=== PATIENT | male | born 1960 | race Caucasian/White ===

== ENCOUNTER 2022-05-13 15:44 | Inpatient (IN) | payer MEDICAID ==
[~2022-05-13] VITALS: Ht 162.6 cm; Wt 81.2 kg
--- NOTE | 2022-05-13 16:08 | NUR ---
perez at bedside for x-ray.
[2022-05-13 16:15] LABS: BASOPHILS # (AUTO) 0.1 K/uL (0.0-0.2); BASOPHILS % (AUTO) 0.7 % (0.0-2.0); EOSINOPHILS % (AUTO) 1.6 % (0.0-6.0); HEMATOCRIT 42 % (39-51); HEMOGLOBIN 14.2 g/dL (13.5-17.5); LYMPHOCYTES # (AUTO) 2.4 K/uL (0.8-4.8); LYMPHOCYTES % (AUTO) 26.9 % (20.0-44.0); MEAN CORPUSCULAR HGB CONC 34 g/dl (31.0-36.0); MEAN CORPUSCULAR VOLUME 96 fL (80-96); MONOCYTES # (AUTO) 0.8 K/uL (0.1-1.30); NEUTROPHILS # (AUTO) 5.5 K/uL (1.8-8.9); NEUTROPHILS % (AUTO) 61.8 % (43.0-81.0); PLATELET COUNT (AUTO) 157 K/uL (150-450); RED BLOOD CELL COUNT(AUTO) 4.39 MIL/uL (4.5-6.0); WHITE BLOOD COUNT (AUTO) 8.9 K/uL (4.3-11.0)
[2022-05-13 16:26] LABS: CALCIUM, SERUM 7.9 mg/dL (8.5-10.1); CARBON DIOXIDE 26 mmol/L (21-32); CHLORIDE 107 mmol/L (98-107); CREATININE 1.1 mg/dL (0.6-1.3); GLUCOSE 129 mg/dL (74-106); POTASSIUM 3.8 mmol/L (3.5-5.1); SODIUM SERUM 136 mmol/L (136-145); UREA NITROGEN, BLOOD 18 mg/dL (7-18)
[2022-05-13 16:39] LABS: ALANINE AMINOTRANSFERASE 32 U/L (12-78); ALKALINE PHOSPHATASE 54 U/L (46-116); ASPARTATE AMINOTRANSFERASE 19 U/L (15-37); BILIRUBIN,DIRECT 0.1 mg/dL (0.0-0.2); BILIRUBIN,TOTAL 0.4 mg/dL (0.2-1.0); TOTAL PROTEIN, SERUM 6.2 g/dL (6.4-8.2)
--- NOTE | 2022-05-13 17:19 | NUR ---
COVID SWAB COLLECTED AND SENT TO LAB
[2022-05-13] MEDS ORDERED: ASPIRIN 81 MG TAB.CHEW PO ONE (17:30)
[2022-05-13] MEDS ORDERED: ASPIRIN 81 MG TAB.CHEW ONE (17:44)
[2022-05-13] MEDS ORDERED: MORPHINE SULFATE INJ 2 MG/ML DISP.SYRIN IV PRN (19:00)
[2022-05-13] MEDS ORDERED: MAG HYDROX/AL HYDROX/SIMETH 30 ML UDC PO PRN (19:00)
[2022-05-13] MEDS ORDERED: ONDANSETRON HCL/PF 4 MG/2 ML VIAL IVP PRN (19:00)
[2022-05-13] MEDS ORDERED: MAGNESIUM HYDROXIDE 30 ML UDC PO PRN (19:00)
[2022-05-13] MEDS ORDERED: ACETAMINOPHEN 325 MG TABLET PO PRN (19:00)
[2022-05-13] MEDS ORDERED: LORAZEPAM 1 MG TABLET PO PRN (19:00)
[2022-05-13] MEDS ORDERED: Z GUARD REMEDY 4 OZ OINT TP PRN (19:00)
--- NOTE | 2022-05-13 20:00 | NUR ---
ASSUMED CARE. PT BIBRA C/O CP AT URGENT CARE. ASA AND NITRO GIVEN. EMS GAVE ADENOSISN 6MG/12MG. PT PAIN FREE ELECTRICAL MAINTENANCE WORKER. PT AAOX4 BREATHING EVENLY AND UNLABORED. SKIN WARM AND DRY. PT ATTACHED TO MONITOR AND POX. WILL CONTINUE TO MONITOR.
--- NOTE | 2022-05-14 00:33 | NUR ---
REPORT GIVEN TO SHAYLA RN FOR HAY
[2022-05-14 01:40] VITALS: BP 151/103
--- NOTE | 2022-05-14 01:45 | NUR ---
TRANSFERRED TO ROOM VIA ACLS
[2022-05-14] MEDS: IV NS 0.9% 1,000 ML IV PRN (01:47)
--- NOTE | 2022-05-14 03:19 | NUR ---
rRECEIVED REPORT FROM ER NURSE MAHI RN AT 2225, PATIENT TRANSPORTED VIA GURNEY AND WAS ABLE TO AMBULATE FROM GURNEY TO ROOM. DENIES PAIN, COMPLETE ASSESSMENT COMPLETED.
[2022-05-14 04:00] VITALS: BP 121/80
--- NOTE | 2022-05-14 07:09 | NUR ---
REPORT GIVEN TO JOSEFINA MCCARTY.
[2022-05-14 07:13] LABS: BASOPHILS # (AUTO) 0.1 K/uL (0.0-0.2); BASOPHILS % (AUTO) 0.7 % (0.0-2.0); EOSINOPHILS % (AUTO) 2.7 % (0.0-6.0); HEMATOCRIT 42 % (39-51); HEMOGLOBIN 13.9 g/dL (13.5-17.5); LYMPHOCYTES # (AUTO) 2.8 K/uL (0.8-4.8); LYMPHOCYTES % (AUTO) 32.5 % (20.0-44.0); MEAN CORPUSCULAR HGB CONC 33 g/dl (31.0-36.0); MEAN CORPUSCULAR VOLUME 96 fL (80-96); MONOCYTES # (AUTO) 0.8 K/uL (0.1-1.30); MONOCYTES % (AUTO) 8.9 % (2.0-12.0); NEUTROPHILS # (AUTO) 4.8 K/uL (1.8-8.9); NEUTROPHILS % (AUTO) 55.2 % (43.0-81.0); PLATELET COUNT (AUTO) 149 K/uL (150-450); RED BLOOD CELL COUNT(AUTO) 4.37 MIL/uL (4.5-6.0); WHITE BLOOD COUNT (AUTO) 8.7 K/uL (4.3-11.0)
--- NOTE | 2022-05-14 07:30 | NUR ---
INDUSTRIAL SPRAYPAINTER AM NOTES RECIEVED PT IN BED, AAOX 4, [place] CITIZ[place] SPEAKING ON ROOM AIR, NO SOB, RESPIRATION UNLABORED. O2 SAT >95%. SINUS RHYTHM HR 69 ON MONITOR. DENIES CHEST PAIN/DISCOMFORT. AMB AD RYAN. WITH RIGHT AC G 18, WITH NS AT 75 ML/HR, LEAKING. WILL RE START ON ANOTHER SITE. SKIN INTACT. CARDIAC DIET. POC DISCUSSED. VERBALIZED UNDERSTANDING. SAFETY MEASURES IN PLACE. BED LOW LOCKED. CALL LIGHT WITHIN REACH, WILL CONT TO MONITOR
[2022-05-14 07:40] LABS: CALCIUM, SERUM 8.2 mg/dL (8.5-10.1); CREATININE 0.9 mg/dL (0.6-1.3); MAGNESIUM 2.2 mg/dL (1.8-2.4); PHOSPHORUS 3.4 mg/dL (2.5-4.9); POTASSIUM 3.9 mmol/L (3.5-5.1)
[2022-05-14 08:00] VITALS: BP 127/89
--- NOTE | 2022-05-14 08:05 | NUR ---
RN NOTES CIGARETTE AND 2 LIGHTERS TO CONTRABAND SAFE.
[2022-05-14 08:55] LABS: THYROID STIMULATING HORMONE 44.291 uIU/mL (0.358-3.74)
[2022-05-14] MEDS: ATORVASTATIN 10 MG TABLET PO SCH (09:28)
[2022-05-14] MEDS: ASPIRIN 81 MG TAB.CHEW PO SCH (09:28)
[2022-05-14] MEDS: ENOXAPARIN SODIUM 80 MG/0.8 ML DISP.SYRIN SQ SCH ×2 (09:29→22:15)
--- NOTE | 2022-05-14 09:30 | NUR ---
RN NOTES DUE MEDS GIVEN
[2022-05-14 12:00] VITALS: BP 126/74
[2022-05-14 16:00] VITALS: BP 123/72
--- NOTE | 2022-05-14 18:34 | NUR ---
PEOPLE GREETER CLOSING NOTES PATIENT RESTING COMFORTABLY. ALL NEEDS MET AT THIS TIME. WAS SEEN BY DR. SABILLON EARLIER. VITAL SIGNS WNL. SAFETY MEASURES IN PLACE. CALL LIGHT WITHIN REACH. WILL ENDORSE TO NEXT SHIFT FOR HAY.
[2022-05-14 20:00] VITALS: BP 122/75
--- NOTE | 2022-05-14 20:00 | NUR ---
RN NOTES RECEIVED REPORT FROM REGISTRY. PATIENT IN BED A/O X4 CITIZEN OF [place] SPEAKING ABLE TO MAKE NEEDS KNOWN FAMILY AT BEDSIDE. ON ROOM AIR SATING 99% NO SOB NO DISTRESS NOTED AT THIS TIME. WITH IV ACCESS AT R HNAD #22 PATENT FLUSHES WELL WITH ONGOING IVF NS@ 75CC/HR. DENIES ANY CHEST PAIN AT THIS TIME. ALL SAFETY MEASURES IN PLACE AT ALL TIMES. HOB ELEVATED. CALL LIGHT WITHIN REACH. WILL CLOSELY MONITOR THE PATIENT
[2022-05-15] VITALS (7 sets, daily range): BP systolic 118–130; BP diastolic 76–85
[2022-05-15] MEDS: IV NS 0.9% 1,000 ML IV PRN (01:26)
--- NOTE | 2022-05-15 06:48 | NUR ---
RN NOTES PATIENT IN BED NO CHEST PAIN NO DISTRESS NOTED AT THIS TIME. IV ACCESS PATENT RUNNING NS @ 75ML/HR. ALL DUE MEDS GIVEN ORDERED. ALL SAFETY MEASURES IN PLACE AT ALL TIMES. PATIENT IS NPO SINCE LAST NIGHT FOR POSSIBLE CT ANGIO CONSENT @ CHART. ALL NEEDS ATTENDED. WILL ENDORSED TO MORNING SHIFT FOR HAY
--- NOTE | 2022-05-15 07:30 | NUR ---
MULTIMEDIA EDUCATIONAL SPECIALIST opening NOTES RECIEVED PT IN BED, AAOX 4, SPANISH/SPANISH SPEAKING ON ROOM AIR, O2 SAT >95%. SINUS RHYTHM/sinus tachycardia ON MONITOR.no complaints of chest pain or discomfort. pt has iv site on right wrist. iv patent,and flushing well. pt is ambulatory and independent.all safety measures in place. call light within reach. bed locked at lowest position. side rails up x2.bedside table next to patient
[2022-05-15] MEDS: ENOXAPARIN SODIUM 80 MG/0.8 ML DISP.SYRIN SQ SCH (08:30)
--- NOTE | 2022-05-15 08:30 | NUR ---
rn note hold lovenox due to pt going to [facility].spoke with radiology said to ok hold lovenox
[2022-05-15] MEDS: ATORVASTATIN 10 MG TABLET PO SCH (09:00)
[2022-05-15] MEDS: ASPIRIN 81 MG TAB.CHEW PO SCH (09:00)
[2022-05-15] MEDS ORDERED: ATORVASTATIN 10 MG TABLET PO SCH (09:00)
[2022-05-15 09:02] LABS: BASOPHILS # (AUTO) 0.1 K/uL (0.0-0.2); EOSINOPHILS % (AUTO) 2.6 % (0.0-6.0); HEMATOCRIT 43 % (39-51); HEMOGLOBIN 14.4 g/dL (13.5-17.5); LYMPHOCYTES # (AUTO) 2.5 K/uL (0.8-4.8); LYMPHOCYTES % (AUTO) 31.8 % (20.0-44.0); MEAN CORPUSCULAR HGB CONC 33 g/dl (31.0-36.0); MEAN CORPUSCULAR VOLUME 97 fL (80-96); MONOCYTES # (AUTO) 0.7 K/uL (0.1-1.30); MONOCYTES % (AUTO) 9.2 % (2.0-12.0); NEUTROPHILS # (AUTO) 4.3 K/uL (1.8-8.9); NEUTROPHILS % (AUTO) 55.4 % (43.0-81.0); PLATELET COUNT (AUTO) 139 K/uL (150-450); RED BLOOD CELL COUNT(AUTO) 4.48 MIL/uL (4.5-6.0); WHITE BLOOD COUNT (AUTO) 7.7 K/uL (4.3-11.0)
[2022-05-15 09:20] LABS: CALCIUM, SERUM 7.4 mg/dL (8.5-10.1); CREATININE 0.8 mg/dL (0.6-1.3); POTASSIUM 3.9 mmol/L (3.5-5.1)
[2022-05-15 09:26] LABS: ALBUMIN 2.7 g/dL (3.4-5.0); BILIRUBIN,TOTAL 0.4 mg/dL (0.2-1.0); MAGNESIUM 2.2 mg/dL (1.8-2.4); PHOSPHORUS 2.6 mg/dL (2.5-4.9); TOTAL PROTEIN, SERUM 6.3 g/dL (6.4-8.2)
[2022-05-15] MEDS ORDERED: NITROGLYCERIN 0.4 MG/TAB BOTTLE ONE (11:23)
[2022-05-15] MEDS ORDERED: IOHEXOL-350 100 ML VIAL IV ONE (11:23)
[2022-05-15] MEDS ORDERED: CT SWABBABLE VALVE TRANS SET 1 EA INFUS.SET MC ONE (11:23)
[2022-05-15] MEDS ORDERED: IV NS 0.9% 250 ML IV ONE (11:23)
[2022-05-15] MEDS ORDERED: METOPROLOL TARTRATE INJ 5 MG/5 ML AMPUL ONE (11:23)
[2022-05-15] MEDS: METOPROLOL TARTRATE INJ 5 MG/5 ML AMPUL IVP PRN ×4 (11:25→11:40)
[2022-05-15] MEDS ORDERED: NITROGLYCERIN 0.4 MG/TAB BOTTLE SL ONE (11:30)
[2022-05-15] MEDS: METOPROLOL TARTRATE 50 MG TABLET PO SCH ×2 (12:00→18:00)
--- NOTE | 2022-05-15 18:25 | NUR ---
filer metal patterns note pt stable, vital signs within normal limits. went over discharge instructions with patient and family member at bedside.verbalized understanding. removed iv and tele box. returned patient belongings. patient picked up by family,
== END 2022-05-15 18:30 | disposition home or self-care (01) | DRG 190 ==
LOC: ER 15:45 → TELE1 21:13
PROVIDERS: ADMIT Internal Medicine; ATTEND Nurse Practitioner Acute Care
DX: I25.10 Atherosclerotic heart disease of native coronary artery without angina pectoris (principal); I21.A1 Myocardial infarction type 2; E44.0 Moderate protein-calorie malnutrition; I49.9 Cardiac arrhythmia, unspecified; I10 Essential (primary) hypertension; E78.5 Hyperlipidemia, unspecified; E88.09 Other disorders of plasma-protein metabolism, not elsewhere classified; E66.9 Obesity, unspecified; Z68.30 Body mass index [BMI] 30.0-30.9, adult; Z20.822 Contact with and (suspected) exposure to COVID-19; F17.210 Nicotine dependence, cigarettes, uncomplicated; E03.9 Hypothyroidism, unspecified; Z79.899 Other long term (current) drug therapy; Z79.82 Long term (current) use of aspirin
CPT/HCPCS: 36415; 71045-TC; 75574; 80048-TC; 80053-TC; 80061-TC; 80076-TC; 83735-TC; 83880; 84100-TC; 84439-TC; 84443-TC; 84484-TC; 85025-TC; 85730-TC; 93307-TC; C9803; G0378; J1650; J3490; J7030; J7050; Q9967